=== PATIENT | female | born 1960 | race Caucasian/White ===

== ENCOUNTER 2019-04-19 13:48 | Emergency (ER) | payer MEDICAID, OTHER ==
[~2019-04-19] VITALS: Ht 162.6 cm; Wt 53.0 kg
[~2019-04-19 13:48] MED LIST: ORPH100T2 PO
[2019-04-19] MEDS ORDERED: normal saline 1000ML IV soln IVB ONE ×2 (14:05)
[2019-04-19] MEDS ORDERED: metoclopramide 5 mg/ml inj IV ONE (14:05)
[2019-04-19] MEDS ORDERED: diphenhydrAMINE 50 mg/ml inj IV ONE (14:05)
[2019-04-19] MEDS ORDERED: glycopyrrolate 0.2mg/ml inj IV ONE (14:05)
[2019-04-19 14:42] LABS: BASOPHILS % (AUTO) 0.5 % (0-1); EOSINOPHILS # (AUTO) 0.1 X10'3 (0-0.9); EOSINOPHILS % (AUTO) 1.1 % (0-6); HEMATOCRIT 37.4 % (35.0-45.0); HEMOGLOBIN 12.5 g/dl (12.0-16.0); LYMPHOCYTES # (AUTO) 1.9 X10'3 (1.1-4.8); LYMPHOCYTES % (AUTO) 20.5 % (21-51); MEAN CORPUSCULAR HEMOGLOBIN 26.7 PG (27.0-31.0); MEAN CORPUSCULAR HGB CONC 33.6 g/dL (33.0-36.5); MEAN CORPUSCULAR VOLUME 79.5 FL (78-98); MEAN PLATELET VOLUME 7.8 FL (7.4-10.4); MONOCYTES # (AUTO) 0.7 X10'3 (0-0.9); MONOCYTES % (AUTO) 7.2 % (2-12); NEUTROPHILS # (AUTO) 6.5 X10'3 (1.8-7.7); NEUTROPHILS % (AUTO) 70.7 % (42-75); PLATELET COUNT 328 X10'3 (140-440); RED CELL DISTRIBUTION WIDTH 15.2 % (11.5-14.5); WHITE BLOOD COUNT 9.2 X10'3 (4.5-11.0)
[2019-04-19] MEDS ORDERED: LOPE-144 PO (14:53)
[2019-04-19] MEDS ORDERED: METR-159 PO (14:53)
[2019-04-19] MEDS ORDERED: ONDA4TAB12 PO (14:53)
[2019-04-19] MEDS ORDERED: DICY10CA88 PO (14:53)
[2019-04-19 14:58] LABS: ALANINE AMINOTRANSFERASE 286 U/L (12-78); ALBUMIN 3.6 G/DL (3.4-5.0); ALBUMIN/GLOBULIN RATIO 0.8 (1.1-1.5); ALKALINE PHOSPHATASE 192 IU/L (46-116); ANION GAP 7 (8-16); ASPARTATE AMINO TRANSFERASE 289 U/L (10-37); BILIRUBIN,TOTAL 0.2 MG/DL (0.1-1.0); BLOOD UREA NITROGEN 11 MG/DL (7-18); BUN/CREATININE RATIO 16.2 (6.6-38.0); CALCIUM 8.9 MG/DL (8.5-10.1); CHLORIDE 100 MMOL/L (99-107); CREATININE 0.68 MG/DL (0.40-0.90); GLUCOSE 85 MG/DL (70-104); LIPASE 204 U/L (73-393); POTASSIUM 3.2 MMOL/L (3.5-5.1); SODIUM 138 MMOL/L (135-145); TOTAL PROTEIN 8.4 G/DL (6.4-8.2); eGFR 89 ML/MIN
[2019-04-19] MEDS ORDERED: ondansetron/PF 4mg/2ml inj IV ONE (15:00)
--- NOTE | 2019-04-19 15:42 | NUR ---
PT WAS AMBULATORY TO THE BATHROOM WITH STEADY GAIT, PT PROVIDED URINE SAMPLE BUT UNABLE TO GIVE STOOL SAMPLE AT THIS TIME, DR WOOD AT BEDSIDE TO DISCUSS DISCHARGE AND PLAN OF CARE, PT WILL HAVE ABD ULTRASOUND PRIOR TO DISCHARGE, WILL SEND [facility] HOME WITH PT TO PROVIDE STOOL SAMPLE AND FOLLOW UP WITH PMD
[2019-04-19 15:59] LABS: CLARITY,URINE CLEAR (Clear); COLOR,URINE STRAW (Yellow); GLUCOSE, URINE NEGATIVE (Neg); KETONES,URINE NEGATIVE (Neg); LEUKOCYTE ESTERASE ,URINE NEGATIVE (Neg); NITRITES, URINE NEGATIVE (Neg); OCCULT BLOOD,URINE NEGATIVE (Neg); PH,URINE 7.5 (4.8-8.0); PROTEIN,URINE NEGATIVE (Neg); UROBILINOGEN,URINE 0.2 E.U/dL (0.2-1.0)
[2019-04-19 16:03] LABS: UA COLLECTION TYPE CLN CATCH MIDSTREAM
[2019-04-19 16:26] VITALS: BP 166/89
== END 2019-04-19 16:28 | disposition home or self-care (01) ==
LOC: ER 13:48
DX: R19.7 Diarrhea, unspecified (principal); R50.9 Fever, unspecified; R11.0 Nausea; G89.29 Other chronic pain; Z88.1 Allergy status to other antibiotic agents; Z88.8 Allergy status to other drugs, medicaments and biological substances; Z79.899 Other long term (current) drug therapy
CPT/HCPCS: 36415; 76700; 80053; 81003; 83690; 84145; 85025; 96361; 96374; 96375; 99284; J1200; J2405; J7030; J3490

== ENCOUNTER 2022-06-18 14:26 | Outpatient (CLI) | payer MEDICAID ==
[~2022-06-18 14:26] MED LIST changes: +LOPE-144 PO; +ONDA4TAB12 PO
== END 2022-06-18 23:59 | disposition home or self-care (01) ==
LOC: RAD 14:26
DX: Z01.810 Encounter for preprocedural cardiovascular examination (principal); I49.1 Atrial premature depolarization
CPT/HCPCS: 93005